=== PATIENT | male | born 1950 | race Caucasian/White ===

== ENCOUNTER → 2020-03-14 12:49 | Outpatient (CLI) | payer MEDICARE, SELFPAY ==
[2020-03-08 09:18] VITALS: BMI 25.9
[2020-03-14 13:21] LABS: CREATININE FINGERSTICK 0.7 mg/dL (0.70-1.30)
--- NOTE | 2020-03-14 13:25 | CT_ITS ---
STUDY: CT ABDOMEN AND PELVIS WITH CONTRAST REASON FOR EXAM: Male, 69 years old. LEFT INGUINAL PAIN, HERNIA REPAIR YEARS AGO BOTHERING HIM RADIATION DOSAGE (If Supplied By Facility): CTDIvol = ( 10.42 ) mGy, DLP = ( 437.28 ) mGycm TECHNIQUE: Transaxial images were obtained from the dome of the diaphragm to the symphysis pubis with oral contrast. Oral and amp; IV READII-CAT and amp; 100ML ISOVUE 300 was administered. Sagittal and coronal images were reconstructed. Individualized dose optimization techniques were used for this CT. COMPARISON: None. FINDINGS: The visualized lung bases are unremarkable. The visualized portions of the heart are within normal limits. Normal liver. Normal gallbladder and extrahepatic biliary system. Normal spleen. Normal pancreas. Normal bilateral adrenal glands. Normal right kidney. Normal left kidney. Normal visualized stomach. Normal small intestine. Large amount of fecal material is seen in the right hemicolon. The appendix is visualized and appears normal. Normal abdominal aorta. Normal inferior vena cava. Normal retroperitoneum. Normal urinary bladder. Metallic radiation seeds are seen within the prostate. Small benign-appearing bilateral inguinal lymph nodes are seen. There is evidence of prior repair of a right inguinal hernia with a mesh. No evidence of recurrent hernia. Normal osseous structures. CT/Abdomen/Pelvis WITH Contrast IMPRESSION: No evidence of recurrent inguinal hernia on the right side secondary to repair. Electronically Signed: Jared Wiseman, at 15:22 EDT , Service support ,
== END ==
PROVIDERS: Referring Provider Surgery; Visit Provider Surgery
DX: R10.32 Left lower quadrant pain (principal)
CPT/HCPCS: 74177; Q9967

== ENCOUNTER 2024-08-20 07:32 | Day surgery (SDC) | payer MEDICARE, SELFPAY ==
[2024-08-20] VITALS (8 sets, daily range): BP systolic 91–125; BP diastolic 65–77; PULSE 65–76; RESP 16–17; TEMP 36.4–37.3; O2SAT 94–99; BMI 26.4
--- NOTE | 2024-08-20 08:00 | PCM.PRE.AN2 ---
ASA Classification* ASA Classification ASA Classification: 2 Assessment & Plan Anesthesia* Anesthesia Assessment Anesthesia Assessment: Discussed sedation and/or anesthesia options, risks, benefits, and alternatives with patient/parents/legal guardian/POA. Questions invited. The patient/parents/legal guardian/POA seems to understand and agrees to proceed with anesthesia plan. Reviewed the physical assessment, medical history, allergy history and patient home medications list prior to surgery/procedure/anesthetic and documented any changes. Performed airway and anesthesia risk assessments. Anesthesia Type Anesthesia Type: MAC History Source History Obtained from:: Patient and Chart Anesthesia Focused Assessment* Temperature: 97.5 F Pulse Rate: 76 Blood Pressure: 125/77 Respiratory Rate: 17 Pulse Ox: 94 Oxygen Delivery Method: Room Air Airway Assessment Mouth opens: 2 cm Mallampati Score: III Teeth Condition: Caps/Crowns (Patient several caps. They are all tight.) Neck Range of motion (ROM): Full ROM Focused Labs Anesthesia Preop lab: CBC CHEMISTRY COAG Pre-Assessment Diagnosis/Proposed Procedure Planned Operative Procedure(s): COLONOSCOPY Anesthesia History Anesthesia History - tube mounter: Anesthesia History - tube mounter Hx Hospitalization No 08/17/24 14:19 Any Problems With Anesthesia No 08/17/24 14:19 Cholinesterase deficiency No 08/17/24 14:19 You/Your Family Experience No 08/17/24 14:19 fever (hyperthermia) with Relationship Recent Exposure to Contagious No 08/20/24 07:54 Disease Does patient have nerve No 08/17/24 14:19 stimulator Patient instructed to have device shut off --Does patient have Pacemaker No 08/20/24 07:54 or ICD? When Was Last Pacemaker Check QUESTION #4 FULL TEXT: You/Your Family Experience fever (hyperthermia) with Anesthesia Last Oral Intake Last Oral intake: Last Oral Intake NPO since 03:30 08/20/24 07:54 Meds taken in AM with sips of No 08/20/24 07:54 water? Meds patient instructed to take am of surgery Any additional information?: Yes NPO since: 03:30 (Patient finished prep at 3:30 AM) Meds taken in AM with sips of water?: No PONV PONV - tube mounter: PONV - tube mounter Female No 08/17/24 14:19 HX of Motion Sickness No 08/17/24 14:19 HX of N/V After Surgery No 08/17/24 14:19 Non-Smoker Yes 08/17/24 14:19 Duration of Surgery greater No 08/17/24 14:19 than 60 minutes Number of Risk Factors 1 08/17/24 14:19 PONV Score Low Risk 08/17/24 14:19 Height & Weight Height & Weight: Anesthesia: Height & Weight Height 5 ft 5 in 08/20/24 07:54 Weight: 72 kg 08/20/24 07:54 Body Mass Index (BMI) 26.4 08/20/24 07:54 Respiratory Assessment Respiratory Assessment - tube mounter: Respiratory Tract Infection Hx - tube mounter Hx Respiratory Tract Infection No 08/17/24 14:19 STOP Sleep Apnea STOP Sleep Apnea - tube mounter: STOP Sleep Apnea - tube mounter Hx Hypertension No 08/17/24 14:19 Hx Sleep Apnea No 08/17/24 14:19 CPAP BIPAP Do you snore loudly (louder No 08/17/24 14:19 than talking or can be heard Do you often feel tired/ No 08/17/24 14:19 fatigued/ sleepy during daytime? Has anyone observed you stop No 08/17/24 14:19 breathing during sleep? STOP Results Negative 08/17/24 14:19 QUESTION #5 FULL TEXT : Do you snore loudly (louder than talking or can be heard through closed doors)? 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 Specify any problems Hx of Preganancy in last 3 N/A 08/17/24 14:19 Months Nurse Filling Out Transfusion VLEHMAN 08/17/24 14:19 & Questions: Date: 08/17/24 08/17/24 14:19 Time: 14:24 08/17/24 14:19 Patient unable to answer at this time (ie. confused, unrespo /Reproduction History /Reproductive History - tube mounter: /Reproductive Hx- tube mounter Hx Now No 08/17/24 14:19 Gestational Age (in weeks): EDC: Hx Hx Para Hx Section [facility] Medical History Wears hearing aid Wears glasses Cancer Prostate disease Former smoker Hx of colonic polyps Prostate cancer Home Medications ?Medication ?Instructions ?Recorded ?Last Taken ?Type ascorbate calcium (vitamin C) 500 500 mg PO DAILY 03/08/20 Unknown History mg tablet calcium acetate 667 mg tablet 1,334 mg PO TID 03/08/20 Unknown History cholecalciferol (vitamin D3) 25 25 mcg PO DAILY 03/08/20 Unknown History mcg (1,000 unit) capsule (Vitamin D3) coenzyme Q10 75 mg capsule (Ultra 75 mg PO DAILY 03/08/20 Unknown History CoQ10) magnesium 250 mg tablet 250 mg PO DAILY 03/08/20 Unknown History omega-3 fatty acids 1,250 mg 1,250 mg PO DAILY 01/13/24 Unknown History capsule Allergy/AdvReac Type Severity Reaction Status Date / Time No Known Allergies Allergy Verified 08/20/24 07:53 Family History Mother Diabetes Kidney disease Father Seizures CAD (coronary artery disease) Cancer prostate-father Colon polyps Surgical History Hx of colonoscopy S/P left knee surgery S/P inguinal hernia repair Status post prostatectomy Social History household members: spouse current occupation: Semi-retired Smoking Status: Former smoker alcohol intake: current alcohol intake frequency: a few times a month substance use type: does not use Review of Systems (Anesthesia) ROS Narrative System reviewed and no additional complaints, except as documented.
--- NOTE | 2024-08-20 08:30 | PCM.HP.STD ---
[facility] - General General Date of Admission: 08/20/24 Date of Service: 08/20/24 Chief Complaint: Screening colonoscopy HPI Narrative KIM SALAS, is a 74 M who presents today for screening colonoscopy. His last colonoscopy was about 10 years ago. It was normal. He has no history of polyps. He has no significant past medical history except for hemorrhoids. He does not take any medicines on a daily basis. [facility] Medical History Wears hearing aid Wears glasses Cancer Prostate disease Former smoker Hx of colonic polyps Prostate cancer Home Medications ?Medication ?Instructions ?Recorded ?Last Taken ?Type ascorbate calcium (vitamin C) 500 500 mg PO DAILY 03/08/20 Unknown History mg tablet calcium acetate 667 mg tablet 1,334 mg PO TID 03/08/20 Unknown History cholecalciferol (vitamin D3) 25 25 mcg PO DAILY 03/08/20 Unknown History mcg (1,000 unit) capsule (Vitamin D3) coenzyme Q10 75 mg capsule (Ultra 75 mg PO DAILY 03/08/20 Unknown History CoQ10) magnesium 250 mg tablet 250 mg PO DAILY 03/08/20 Unknown History omega-3 fatty acids 1,250 mg 1,250 mg PO DAILY 01/13/24 Unknown History capsule Allergy/AdvReac Type Severity Reaction Status Date / Time No Known Allergies Allergy Verified 08/20/24 07:53 Family History Mother Diabetes Kidney disease Father Seizures CAD (coronary artery disease) Cancer prostate-father Colon polyps Surgical History Hx of colonoscopy S/P left knee surgery S/P inguinal hernia repair Status post prostatectomy Social History household members: spouse current occupation: Semi-retired Smoking Status: Former smoker alcohol intake: current alcohol intake frequency: a few times a month substance use type: does not use ROS Constitutional Constitutional: Denies fatigue, fever(s), poor appetite, weight gain or weight loss Gastrointestinal Gastrointestinal: Denies belching, bloating, change in bowel habits, change in stool character, chewing difficulty, coffee ground emesis, constipation, cramping, diarrhea, dyspepsia, dysphagia, early satiety, excessive flatus, fecal incontinence, heartburn, hematemesis, hematochezia, hemorrhoids, loose stools, melena, nausea, odynophagia, rectal bleeding, tenesmus, vomiting or weight changes Vital Signs Vital Signs Vital Signs: 08/20/24 07:54 08/20/24 07:54 08/20/24 08:04 Temperature 97.5 F L 97.5 F L Temperature Source Temporal Pulse Rate 76 76 Respiratory Rate 17 17 Respiratory Pattern Normal Blood Pressure 125/77 H 125/77 H Blood Pressure Mean 93 Blood Pressure Source Monitor Blood Pressure Position Semi-Fowlers Blood Pressure Location Left Arm Pulse Ox 94 94 Oxygen Delivery Method Room Air Room Air Weight Weight: 158 lb 11.725 oz Body Mass Index (BMI) 26.4 Physical Exam Const alert, oriented x3, no apparent distress and healthy appearing General Appearance: cooperative GI normal to inspection, nondistended, normoactive bowel sounds, soft to palpation, non-tender and non-distended Percussion: normal to percussion Rectal Exam: deferred Assessment & Plan Assessment/Plan (1) Encounter for screening for malignant neoplasm of colon: PLAN: It was explained alternatives, risk, benefits including not withstanding bleeding, infection, sepsis, perforation, need for more charge and . He will have an ASA of 3.
--- NOTE | 2024-08-20 09:15 | OP.CCLET_ITS ---
08/20/2024 Steven Villegas Re : Colonoscopy procedure for Luther Arias Dear Nelly This procedure was performed on August. My impressions and recommendations are as follows: Impressions : - Diverticulosis in the recto-sigmoid colon, in the sigmoid colon and in the descending colon. - The examination was otherwise normal on direct and retroflexion views. - No specimens collected. Recommendations : - Discharge patient to home. - Resume previous diet. - Continue present medications. - Await pathology results. - Repeat colonoscopy in 10 years for screening purposes. My findings are described in the full procedure note, which is enclosed. If I can be of further assistance, please feel free to contact me at . Sincerely, Jared Albarran, 08/20/2024 9:14:41 AM This report has been signed electronically.
--- NOTE | 2024-08-20 09:15 | OP.COLON_ITS ---
Patient Name: Luther Arias Procedure Date: 08/20/2024 8:38 AM Date of : 1950 Age: 74 Procedure: Colonoscopy Indications: Screening for colorectal malignant neoplasm Providers: DO Eric Leggett MD: Steven Villegas Medicines: Monitored Anesthesia Care Patient Profile: This is a 74 year old male. Refer to note in patient chart for documentation of history and physical. Last Colonoscopy: more than 10 years ago. Complications: No immediate complications. Procedure: Pre-Anesthesia Assessment: - Prior to the procedure, a History and Physical was performed, and patient medications and allergies were reviewed. The patient is competent. The risks and benefits of the procedure and the sedation options and risks were discussed with the patient. All questions were answered and informed consent was obtained. Patient identification and proposed procedure were verified by the physician in the pre-procedure area. Mental Status Examination: alert and oriented. Airway Examination: normal oropharyngeal airway and neck mobility. Respiratory Examination: clear to auscultation. CV Examination: normal. Prophylactic Antibiotics: The patient does not require prophylactic antibiotics. Prior Anticoagulants: The patient has taken no anticoagulant or antiplatelet agents except for NSAID medication. ASA Grade Assessment: II - A patient with mild systemic disease. After reviewing the risks and benefits, the patient was deemed in satisfactory condition to undergo the procedure. The anesthesia plan was to use monitored anesthesia care (MAC). Immediately prior to administration of medications, the patient was re-assessed for adequacy to receive sedatives. The heart rate, respiratory rate, oxygen saturations, blood pressure, adequacy of pulmonary ventilation, and response to care were monitored throughout the procedure. The physical status of the patient was re-assessed after the procedure. After I obtained informed consent, the scope was passed under direct vision. Throughout the procedure, the patient's blood pressure, pulse, and oxygen saturations were monitored continuously. The Colonoscope was introduced through the anus and advanced to the cecum, identified by the appendiceal orifice, ileocecal valve and palpation. The colonoscopy was performed without difficulty. The patient tolerated the procedure well. The quality of the bowel preparation was adequate. The ileocecal valve, appendiceal orifice, and rectum were photographed. Scope In: 8:49:30 AM Scope Withdrawal Time 0 hours 6 minutes 30 seconds Scope Out: 9:03:21 AM Total Procedure Duration Time 0 hours 13 minutes 51 seconds Findings: The perianal and digital rectal examinations were normal. A few small-mouthed diverticula were found in the recto-sigmoid colon, sigmoid colon and descending colon. The exam was otherwise without abnormality on direct and retroflexion views. Impression: - Diverticulosis in the recto-sigmoid colon, in the sigmoid colon and in the descending colon. - The examination was otherwise normal on direct and retroflexion views. - No specimens collected. Recommendation: - Discharge patient to home. - Resume previous diet. - Continue present medications. - Await pathology results. - Repeat colonoscopy in 10 years for screening purposes. Procedure Code(s): --- Professional --- G0121, Colorectal cancer screening; colonoscopy on individual not meeting criteria for high risk CPT copyright 2021 [employer]. All rights reserved. The codes documented in this report are preliminary and upon gear keeper review may be revised to meet current compliance requirements. Jared Albarran DO 08/20/2024 9:14:41 AM This report has been signed electronically. Number of Addenda: 0 Note Initiated On: 08/20/2024 8:38 AM
--- NOTE | 2024-08-20 09:16 | PCM.POST.ANE ---
Anesthesia: Postop Eval I Current Vital Signs Temperature: 97.7 F Pulse Rate: 74 Blood Pressure: 99/65 Respiratory Rate: 16 Pulse Ox: 99 Oxygen Delivery Method: Room Air Assessment Airway patent: Yes Spontaneous unlabored respirations: Yes Mental status: Asleep nausea: No Vomiting: No Anesthesia Complication: No Fluid Hydration Crystalloid volume administer (ml): 40 Total IV fluid infused: 40 Progress Note Anesthesia document: Postop Eval 1 completed: Yes
--- NOTE | 2024-08-20 12:43 | PCM.POSTANE2 ---
Anesthesia Postop Eval I Sum Postop Eval Completion status Anesthesia document: Postop Eval 1 completed: Yes Anesthesia Postop Eval I Summary Anesthesia Postop Eval I Summary: Anesthesia Postop Eval I: Assessment Summary Airway patent Yes 08/20/24 09:16 [email or web address] Spontaneous unlabored Yes 08/20/24 09:16 [email or web address] respirations Mental status Asleep 08/20/24 09:16 [email or web address] nausea No 08/20/24 09:16 [email or web address] Vomiting No 08/20/24 09:16 [email or web address] Anesthesia Postop Eval I: Fluid Summary Crystalloid volume administer 40 08/20/24 09:16 [email or web address] (ml) Colloids volume administered ( ml) Blood Product volume administered (ml) Total IV fluid infused 40 08/20/24 09:16 [email or web address] Anesthesia Postop Eval I: Summary Notes Anesthesia Complication No 08/20/24 09:16 [email or web address] Anesthesia Complication Comment: Post-operative progress note Anesthesia: Postop Eval II Evaluation Mental status: Awake and Calm Pain Level: 0 nausea: No Vomiting: No Complications Anesthesia Complication: No
== END 2024-08-20 09:54 | disposition home or self-care (01) ==
LOC: EN 07:34 → AC 07:36
PROVIDERS: PCP Family Medicine; Referring Provider Family Medicine; Visit Provider Internal Medicine Gastroenterology
PROC: 0DJD8ZZ Inspection of Lower Intestinal Tract, Via Natural or Artificial Opening Endoscopic (ICD-10-PCS; CPT 45378; principal; 2024-08-20 08:25)
DX: Z12.11 Encounter for screening for malignant neoplasm of colon (principal); K57.30 Diverticulosis of large intestine without perforation or abscess without bleeding; Z87.891 Personal history of nicotine dependence; Z86.0100 Personal history of colon polyps, unspecified; Z85.46 Personal history of malignant neoplasm of prostate
CPT/HCPCS: G0121; A4216; J2405

== ENCOUNTER 2024-09-07 19:25 | Emergency (ER) | payer MEDICARE, SELFPAY ==
[2024-09-07 19:26] VITALS: BP 171/78; PULSE 84; RESP 16; TEMP 36.2; O2SAT 98; BMI 26.9
[2024-09-07] MEDS: Ketorolac 15 MG/ML Vial IV (21:21)
[2024-09-07] MEDS: Morphine 4 MG/ML Syringe IV (21:21)
[2024-09-07] MEDS: Ondansetron 4 MG/2 ML Vial IV (21:21)
[2024-09-07 21:25] VITALS: BP 145/79; PULSE 76; RESP 16; O2SAT 96
--- NOTE | 2024-09-07 21:30 | RAD_ITS ---
PROCEDURE: CERV SPINE 4 OR 5 VIEWS 09/07/2024 REASON FOR EXAM: NECK PAIN WITH LIMITED RANGE OF MOTION TECHNIQUE: 4 views of the cervical spine. COMPARISON: None FINDINGS: Straightening of the cervical lordosis. Vertebral body heights are maintained. Atlantoaxial interval is within normal limits meats. Multilevel loss of disc height throughout the cervical spine. No acute fracture or traumatic subluxation. Multilevel degenerative changes of the cervical spine including endplate remodeling, uncinate hypertrophy and facet degenerative changes, most prominent at C5-C6. Mild bilateral neural foraminal narrowing most prominent at left C3-C4. RAD/Cerv Spine 4 or 5 Views IMPRESSION: No acute fracture or traumatic subluxation. Multilevel degenerative changes most prominent at C5-C6. Reading Location: [facility]
--- NOTE | 2024-09-07 21:59 | EX.ED.DYSGE1 ---
HPI History of Present Illness Chief Complaint: Other, Pain/Inj Detail of Chief Complaint: Neck pain for several weeks, atraumatic Informant: patient and spouse/S.O. Onset/Context/Timing Onset: Weeks Context: Gradual Onset Timing: Continuous and Waxes and wanes Quality: Predominately posterior neck pain Location: Pain and stiffness Current Severity: Moderate Maximum Severity: Severe Worsened by: Any type of movement or pressure Relieved by: Nothing Associated Symptoms Associated Symptoms: None Narrative Narrative: Patient is a 74-year-old male. He has been taking 2 ibuprofen tablets as prescribed on the bottle. He reports no improvement. He has been applying heat and ice with no improvement. He denies paresthesia, anesthesia motors. He denies weakness in his grasp or arms. He denies cardiac or respiratory symptoms. He denies headache. He denies visual, ocular auditory symptoms. He has no significant past medical history. He has no contraindication to NSAIDs. Prior similar symptoms: No Recent Illness/Hospitalization: No PFSH PFSH Medical History Wears hearing aid Wears glasses Cancer Prostate disease Former smoker Hx of colonic polyps Prostate cancer Home Medications ?Medication ?Instructions ?Recorded ?Last Taken ?Type ascorbate calcium (vitamin C) 500 500 mg PO DAILY 03/08/20 Unknown History mg tablet calcium acetate 667 mg tablet 1,334 mg PO TID 03/08/20 Unknown History cholecalciferol (vitamin D3) 25 25 mcg PO DAILY 03/08/20 Unknown History mcg (1,000 unit) capsule (Vitamin D3) magnesium 250 mg tablet 250 mg PO DAILY 03/08/20 Unknown History omega-3 fatty acids 1,250 mg 1,250 mg PO DAILY 01/13/24 Unknown History capsule diazepam 2 mg tablet (Valium) 2 mg PO TID 5 days #14 tabs 09/07/24 Unknown Rx oxycodone-acetaminophen 5 mg-325 1 tab PO Q6H PRN PRN pain 5 days 09/07/24 Unknown Rx mg tablet #20 TABLETS Allergy/AdvReac Type Severity Reaction Status Date / Time No Known Allergies Allergy Verified 09/07/24 19:30 Family History Mother Diabetes Kidney disease Father Seizures CAD (coronary artery disease) Cancer prostate-father Colon polyps Surgical History Hx of colonoscopy S/P left knee surgery S/P inguinal hernia repair Status post prostatectomy Social History household members: spouse current occupation: Semi-retired Smoking Status: Former smoker alcohol intake: current alcohol intake frequency: a few times a month substance use type: does not use ROS ROS ED Constitutional Constitutional ED: Denies chills, fever(s), subjective, sweats or weight loss Eyes Eyes: Denies blurry vision, change in vision or diplopia ENT ENT ED: Denies ear pain, rhinorrhea or sore throat Cardiovascular Cardiovascular: Denies chest pain, palpitations or racing heartbeat Integumentary Denies rash Neurologic Neurologic: Denies headache(s), paresthesias or weakness EXAM Physical Exam Const Vital Signs: 09/07/24 19:26 09/07/24 19:44 09/07/24 21:25 Temperature 97.1 F L Temperature Source Temporal Pulse Rate 84 76 Respiratory Rate 16 16 Respiratory Effort Normal Non-Labored Respiratory Pattern Normal Blood Pressure 171/78 H 145/79 H Blood Pressure Mean 109 101 Pulse Ox 98 96 Oxygen Delivery Method Room Air Room Air Positive well nourished and well developed Constitutional Narrative: Patient appears uncomfortable. He is reluctant to turn his head to the right or left or flex. General Appearance ED: well developed; Negative for cyanotic, diaphoretic or NAD HEENT Reports moist mucous membranes HEENT Narrative: Head is atraumatic normocephalic. Ears normal. There is no dermatologic reasons noted. There is no posterior cervical lymphadenopathy. There is no anterior cervical lymphadenopathy. Eyes PERRL and EOMs intact bilaterally General Eye ED: Negative for pale conjunctiva Neck no lymphadenopathy, No supple and no JVD Neck Narrative: Patient has limited rotation of the right and left. Flexion and extension causes him pain predominately on the left side. Pushing against resistance of the right or left causes his pain to be predominantly on the left side. He does have pain insertion of the paracervical muscles to the base of the skull and posteriorly greater on the left than right. Chest Wall inspection of chest normal and palpation of chest normal Resp normal respiratory effort Cardio regular rate and regular rhythm Extremity normal to inspection Extremity Narrative: Axillary, median, radial and ulnar function intact. Bicep, brachialis tricep reflex are 2+ and symmetric. General Extremety ED: Negative for tenderness Neuro oriented x3, CN's II-XII intact bilaterally and no sensory deficits noted Sensorium / Orientation: alert Motor Exam: strength 5/5 throughout Skin no rashes or lesions noted, no wounds and skin turgor normal MDM MDM MDM Narrative Medical decision making narrative: Musculoskeletal pain, degenerative arthritis of the cervical spine, doubt herniated disc or radicular pain. Symptoms not consistent with meningitis or subarachnoid hemorrhage. X-ray of the cervical spine was obtained to assess for any lytic, blastic lesions and determine if there is any significant narrowing of the neuroforamen. Radiography Chest X-Ray - ED: Read by ED Physician (5 view x-ray of the cervical spine shows minimal degenerative changes. There is no asymmetry of the joint spaces. There is no spondylolisthesis or spondylosis. There is no evidence of fracture. There is no prevertebral soft tissue swelling. The foraminal openings are wide open.) Treatment and Re-Evaluation :: Patient was medicated with IV ketorolac and morphine. He had improvement. Plan is to discharge to home with prescription for opiate Gesic and Valium. He was instructed to continue taking the ibuprofen. Discharge Plan Triage Chief Complaint: Other, Pain/Inj ED Provider: Reggie Bradley Dx/Rx/DC Orders Clinical Impression: Cervical myofascial pain syndrome Instructions: ED Myofascial Pain Syndrome Prescriptions: New oxycodone-acetaminophen 5-325 mg tablet 1 tab PO Q6H PRN PRN (Reason: pain) 5 Days Qty: 20 0RF diazepam [Valium] 2 mg tablet 2 mg PO TID 5 Days Qty: 14 0RF No Action cholecalciferol (vitamin D3) [Vitamin D3] 25 mcg (1,000 unit) capsule 25 mcg PO DAILY calcium acetate 667 mg tablet 1,334 mg PO TID ascorbate calcium (vitamin C) 500 mg tablet 500 mg PO DAILY magnesium 250 mg tablet 250 mg PO DAILY omega-3 fatty acids 1,250 mg capsule 1,250 mg PO DAILY Primary Care Provider: Steven Villegas Referrals: Steven Villegas MD [Primary Care Provider] - 1 Week if not improving Activity Restrictions/Additional Instructions: Take 4 ibuprofen tablets every 8 hours for the next 3 to 5 days. Print Language: Ugandan Disposition Disposition: Home, Self Care
[2024-09-07 22:10] VITALS: BP 150/88; PULSE 70; RESP 16; TEMP 36.8; O2SAT 95
== END 2024-09-07 22:18 | disposition home or self-care (01) ==
PROVIDERS: Emergency Provider Emergency Medicine; PCP Family Medicine; Visit Provider Emergency Medicine
DX: M79.12 Myalgia of auxiliary muscles, head and neck (principal); M47.812 Spondylosis without myelopathy or radiculopathy, cervical region; Z87.891 Personal history of nicotine dependence; Z85.46 Personal history of malignant neoplasm of prostate
CPT/HCPCS: 72050; 96374; 96375; 99283; A4216; J2405

== ENCOUNTER 2024-09-26 10:00 | Emergency (ER) | payer MEDICARE, SELFPAY ==
[2024-09-26 10:02] VITALS: BP 146/85; PULSE 79; RESP 18; TEMP 37.2; O2SAT 95; BMI 27.1
--- NOTE | 2024-09-26 10:19 | VDLE_ITS ---
Reason For Study Reason For Study: Swelling RLE RIGHT LEFT GSV is normal. CFV is compressible, spontaneous, phasic, competent, CFV is compressible, spontaneous, phasic, competent and demonstrates normal augmentation. and demonstrates normal augmentation. FV is compressible, spontaneous, phasic, competent and demonstrates normal augmentation. POP V is compressible, spontaneous, phasic, competent and demonstrates normal augmentation. T/P Trunk is compressible. PTV is compressible. RT PerV is compressible. Procedure This is a venous duplex using B-mode, color flow and spectral Doppler. Exam performed portable in ED. A preliminary report was called and/or faxed to Dr. Campbell. VL/Venous Duplex US, Unilateral Interpretation Summary Deep veins of the right lower extremity are patent and compressible segmentally . There is no evidence of right lower extremity deep vein thrombosis. Valvular competence appears intact within the p roximal deep venous system on the right . The right great saphenous vein appears patent and compressible segmentally. The left common femoral vein is patent and compressible . Ordering Physician: Benoit Campbell Referring Physician: Steven Villegas Performed By: Mary Epps, KEVIN, RVT
--- NOTE | 2024-09-26 10:24 | ED.VIS.LOWEX ---
HPI History of Present Illness Chief Complaint: Lower Extremity Injury Informant: patient and spouse/S.O. Narrative Narrative: 74-year-old male presenting to the emergency room after seeing his primary care doctor today and recommending that he come to rule out DVT of the right leg. Patient notes that recently traveled about 2 and half hours to [place] for a wedding. He states for the bout the past 4 days he has noted swelling of the right ankle and foot. He notes the veins in his right leg were more swollen last night. He notes some tenderness in the calf. He notes that he got sick in July for about a week and since then has had various pains particularly joints which are about 95% better. States nobody is had an explanation for him for his recent illnesses. He states he is not a smoker. He has no known vascular disease. [facility] Medical History Wears hearing aid Wears glasses Cancer Prostate disease Former smoker Hx of colonic polyps Prostate cancer Home Medications ?Medication ?Instructions ?Recorded ?Last Taken ?Type ascorbate calcium (vitamin C) 500 500 mg PO DAILY 03/08/20 Unknown History mg tablet calcium acetate 667 mg tablet 1,334 mg PO TID 03/08/20 Unknown History cholecalciferol (vitamin D3) 25 25 mcg PO DAILY 03/08/20 Unknown History mcg (1,000 unit) capsule (Vitamin D3) magnesium 250 mg tablet 250 mg PO DAILY 03/08/20 Unknown History omega-3 fatty acids 1,250 mg 1,250 mg PO DAILY 01/13/24 Unknown History capsule diazepam 2 mg tablet (Valium) 2 mg PO TID 5 days #14 tabs 09/07/24 Unknown Rx oxycodone-acetaminophen 5 mg-325 1 tab PO Q6H PRN PRN pain 5 days 09/07/24 Unknown Rx mg tablet #20 TABLETS prednisone 20 mg tablet 60 mg (3 x 20 mg) PO DAILY #15 09/26/24 Unknown Rx TABLETS Allergy/AdvReac Type Severity Reaction Status Date / Time No Known Allergies Allergy Verified 09/26/24 10:01 Family History Mother Diabetes Kidney disease Father Seizures CAD (coronary artery disease) Cancer prostate-father Colon polyps Surgical History Hx of colonoscopy S/P left knee surgery S/P inguinal hernia repair Status post prostatectomy Social History household members: spouse current occupation: Semi-retired Smoking Status: Former smoker alcohol intake: current alcohol intake frequency: a few times a month substance use type: does not use ROS ROS ED Constitutional Constitutional ED: Denies chills or weight loss Eyes Eyes: Denies change in vision or diplopia ENT ENT ED: Denies ear pain, rhinorrhea or sore throat Cardiovascular Cardiovascular: Denies chest pain, orthopnea, palpitations or racing heartbeat Respiratory/Chest Respiratory/Chest: Denies cough, dyspnea or orthopnea Gastrointestinal Gastrointestinal: Denies abdominal pain, diarrhea, nausea or vomiting Genitourinary Genitourinary ED: Denies dysuria, hematuria or urinary frequency Musculoskeletal Musculoskeletal: Reports arthralgias, neck pain and other Details: See history of present illness ; Denies myalgias Integumentary Denies abscess or rash Neurologic Neurologic: Denies headache(s) or weakness Psychiatric Psychiatric: Denies anxiety, depression, suicidal ideation or suicidal thoughts Endocrine Endocrinology: Denies polydipsia, polyphagia or polyuria Allergic/Immunologic Allergic/Immunologic ED: Denies mouth swelling, tongue swelling or urticaria EXAM Physical Exam Const Vital Signs: 09/26/24 10:02 Temperature 98.9 F Temperature Source Oral Pulse Rate 79 Respiratory Rate 18 Blood Pressure 146/85 H Blood Pressure Mean 105 Pulse Ox 95 Oxygen Delivery Method Room Air Positive well nourished and well developed General Appearance ED: well developed and NAD HEENT Reports normocephalic, head/scalp atraumatic and moist mucous membranes Eyes PERRL and EOMs intact bilaterally Neck no lymphadenopathy, supple and no JVD Resp normal respiratory effort and clear to auscultation bilaterally Cardio regular rate, regular rhythm and no murmurs GI normal to inspection, nondistended, normoactive bowel sounds and non-tender Palpation: soft Back/Spine no CVA tenderness and normal ROM Extremity Extremity Narrative: There is edema of the right ankle and foot. Mild tenderness of the right calf. There are equal varicosities bilaterally without palpable cords. The foot and ankle appear with a slightly purpleish hue which blanches. This is while he is sitting in a chair. With elevation it improves coloring. Neuro oriented x3 and CN's II-XII intact bilaterally Sensorium / Orientation: alert Motor Exam: strength 5/5 throughout Psych mental status grossly normal Mood & Affect: Negative for depressed or tearful Skin no rashes or lesions noted and no wounds MDM MDM MDM Narrative Medical decision making narrative: Differential diagnosis includes but not limited to DVT superficial thrombophlebitis arterial insufficiency/occlusion gout pseudogout rheumatologic conditions Duplex ultrasound does not demonstrate a DVT. I spoke with the patient as well as the patient's primary care doctor. I like his PCP have thoughts of rheumatologic condition. His doctor tells me they recently sent off a CRP sed rate and RICHI with the CRP being significantly elevated. We talked about repeating these test and they will be sent. We talked about placing him on burst dose steroids which I think is very reasonable and have him obtain early follow-up this upcoming week. Patient and his are comfortable with this plan History & Record Review Discussion w/independent historian: Patient and Family Management Discussion w/another healthcare provider: Social Science Instructor (Dr Villegas) Discharge Plan Triage Chief Complaint: Lower Extremity Injury ED Provider: Benoit Campbell Dx/Rx/DC Orders Clinical Impression: Acute pain of right foot, Localized swelling of right foot Prescriptions: New prednisone 20 mg tablet 60 mg PO DAILY Qty: 15 0RF No Action cholecalciferol (vitamin D3) [Vitamin D3] 25 mcg (1,000 unit) capsule 25 mcg PO DAILY calcium acetate 667 mg tablet 1,334 mg PO TID ascorbate calcium (vitamin C) 500 mg tablet 500 mg PO DAILY magnesium 250 mg tablet 250 mg PO DAILY omega-3 fatty acids 1,250 mg capsule 1,250 mg PO DAILY oxycodone-acetaminophen 5-325 mg tablet 1 tab PO Q6H PRN PRN (Reason: pain) 5 Days Qty: 20 0RF diazepam [Valium] 2 mg tablet 2 mg PO TID 5 Days Qty: 14 0RF Primary Care Provider: Steven Villegas Referrals: Steven Villegas MD [Primary Care Provider] - 5-7 Days Print Language: Martiniquais Disposition Disposition: Home, Self Care
[2024-09-26 12:39] LABS: Erythrocyte Sedimentation Rate 20 mm/hr (0-20)
[2024-09-26 12:40] VITALS: BP 128/78; PULSE 66; RESP 18; TEMP 36.6; O2SAT 99
[2024-09-26 13:20] LABS: Rheumatoid Factor < 10.0 IU/mL (<15)
[2024-09-28 11:08] LABS: Anti-Centromere B Ab <0.2 AI (0.0-0.9); Anti-Chromatin <0.2 AI (0.0-0.9); Anti-Jo <0.2 AI (0.0-0.9); Anti-Scleroderma-70 AB <0.2 AI (0.0-0.9); Anti-dsDNA Ab <1 IU/mL (0-9); RNP Ab <0.2 AI (0.0-0.9); SJOGREN'S Anti-SS-A test < 0.2 AI (0.0-0.9); SJOGREN'S Anti-SS-B test < 0.2 AI (0.0-0.9); Smith Ab <0.2 AI (0.0-0.9)
[2024-09-28 15:08] LABS: CCP IgG Antibodies 6 units (0-19)
== END 2024-09-26 12:42 | disposition home or self-care (01) ==
PROVIDERS: Emergency Provider Emergency Medicine; PCP Family Medicine; Visit Provider Emergency Medicine
DX: M79.671 Pain in right foot (principal); R22.41 Localized swelling, mass and lump, right lower limb; Z87.891 Personal history of nicotine dependence; Z85.46 Personal history of malignant neoplasm of prostate
CPT/HCPCS: 86225; 86235; 93971; 99282

== ENCOUNTER → 2024-10-15 20:00 | Outpatient (REF) | payer MEDICARE, SELFPAY ==
[2024-10-16 15:18] LABS: Erythrocyte Sedimentation Rate 6 mm/hr (0-20)
[2024-10-23 18:08] LABS: Lyme IgG P18 Ab Absent (.); Lyme IgG P23 Ab Absent (.); Lyme IgG P28 Ab Absent (.); Lyme IgG P30 Ab Absent (.); Lyme IgG P39 Ab Absent (.); Lyme IgG P41 Ab Absent (.); Lyme IgG P45 Ab Absent (.); Lyme IgG P58 Ab Absent (.); Lyme IgG P66 Ab Absent (.); Lyme IgG P93 Ab Absent (.); Lyme IgG WB Interpretation Negative (Negative); Lyme IgM P23 Ab Absent (.); Lyme IgM P39 Ab Absent (.); Lyme IgM P41 Ab Absent (.); Lyme IgM WB Interpretation Negative (Negative)
== END ==
LOC: LABSPEC 20:00
PROVIDERS: PCP Family Medicine; Referring Provider Nurse Practitioner Family; Visit Provider Nurse Practitioner Family
DX: M25.571 Pain in right ankle and joints of right foot (principal); M25.50 Pain in unspecified joint; R11.10 Vomiting, unspecified; G93.39 Other post infection and related fatigue syndromes
CPT/HCPCS: 85652; 86617

== ENCOUNTER 2024-10-20 09:34 | Outpatient (RCR) | payer MEDICARE, SELFPAY ==
--- NOTE | 2024-10-20 10:40 | HP.PTEVAL ---
Patient's Visit Information Visit Information Visit Information: KIM SALAS II is a 74 year old M referred to Physical Therapy by Dr. Benoit Felipe DPM with a diagnosis of L achilles pain. Date of Evaluation: 10/20/24 Physical Therapist: Will Walls PT, ATC Visit Plan Frequency: 1x/Week Duration: 2-3 weeks Plan: Pt was issued a HEP of achilles stretches to combine with his ECC strengthening. Follow up in 2 weeks to determine the need for DTR/hawksgrip/stick rollout. Subjective Subjective: Pt reports he has had R heel pain for the past 3 weeks. Pt reports he had x-rays which revealed a large bone spur. Pt notes he has been receiving PT from his doctor, and combined with prednisone, he has been feeling better. 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 Pt reports he had sleep difficulty secondary to pain prior to taking his prednisone. Pt denies any tingling or numbness in R LE. Pt reports his pain is located at the base of his heel, and extends up to the gastroc region. Pt reports he has been able to walk with putting his foot on the ground with less pain lately. 0/10 pain while sitting here at rest, 7/10 pain when at worst. Pain R heel: Pain Intensity (Out of 10): 0 Pain Intensity Range: 7 Objective Objective: Neuro: B LE sensation is WNL to light touch Palpation: Pt is sore along the distal achilles tendon. No obvious deformity noted at this time. ROM: L ankle DF= 12, PF= 40 degrees; R ankle DF= 4, PF= 30 degrees MMT: L ankle DF= 35, PF= 55 #F; R ankle DF= 37, PF= 54 #F Balance/Special Test Scores Lower Extremity Functional Score: 62 Goals Goal 1:: I with Hep 1-2 VISITS Goal Time Frame: 2-4 Weeks Rehabilitation Potential Physical Therapy Diagnosis: Pt has L achilles pain, limited DF ROM, and difficulty with prolonged ambulation secondary to achilles tendonopathy Rehabilitation Potential: Excellent Anticipated Interventions Patient/Client Instruction: Educate patient on: Condition and Plan of Care For the Purpose of:: To improve self management Therapeutic Exercise to Include: Strength training, Flexibilty training, Passive ROM and Active ROM For the Purpose of:: To decrease pain and To increase ROM Manual Therapy Techniques to Include: Soft tissue mobilization For the Purpose of:: To decrease pain and To increase ROM Text: Thank you for the opportunity to evaluate your patient. For Medicare and Medicare HMO plans, please review the plan of care and approve it. It will need to be FAXED BACK to us at [phone] for Medicare purposes. For Medicare only, by signing this I certify the plan of care. Please let me know if there are questions or concerns regarding this plan of care. Physician Signature: Date:
--- NOTE | 2024-12-11 13:30 | HP.PT.NRP ---
Patient Information Patient Information: KIM SALAS II was seen in my office for initial evaluation on 10/20/24. The following Plan of Care was established for this patient: POC Established Initial Frequency: 1x/Week Initial Duration: 2-3 weeks Anticipated Interventions Patient/Client Instruction: Educate patient on: Condition and Plan of Care For the Purpose of:: To improve self management Therapeutic Exercise to Include: Strength training, Flexibilty training, Passive ROM and Active ROM For the Purpose of:: To decrease pain and To increase ROM Manual Therapy Techniques to Include: Soft tissue mobilization For the Purpose of:: To decrease pain and To increase ROM Last Seen Last Seen: This patient was last seen in our office . Pertinent comments regarding their Physical therapy will appear below: Pt has not returned for greater than 30 days and is discharged at this time. At this point I will be discontinuing this patient from physical therapy. I would be happy to see this patient again in the future if found appropriate by the physician. Thank you! Will Walls, PT, ATC Balance/Gait/Functional tests Balance/Special Test Scores Lower Extremity Functional Score: 62
== END 2024-10-20 19:00 | disposition home or self-care (01) ==
LOC: PT 09:34
PROVIDERS: PCP Family Medicine; Referring Provider Podiatrist; Visit Provider Podiatrist
DX: M76.61 Achilles tendinitis, right leg (principal)
CPT/HCPCS: 97161